=== PATIENT | male | born 1980 | race Two or more races ===

== ENCOUNTER 2023-11-27 16:17 | Emergency (ER) | payer OTHER ==
[~2023-11-27] VITALS: Ht 175.3 cm; Wt 70.2 kg
[2023-11-27 17:01] VITALS: BP 115/79; PULSE 59; RESP 18; TEMP 97.8; O2SAT 98
== END 2023-11-27 18:24 | disposition home or self-care (01) ==
LOC: ER 16:18
DX: S61.212D Laceration without foreign body of right middle finger without damage to nail, subsequent encounter (principal); X58.XXXD Exposure to other specified factors, subsequent encounter
CPT/HCPCS: 73130; 99283